=== PATIENT | male | born 1960 | race Caucasian/White ===

== ENCOUNTER 2016-07-18 14:17 | Emergency (ER) | payer BC ==
[2016-07-18 14:27] VITALS: BP 154/94
[2016-07-18] MEDS ORDERED: Metoclopramide 10 MG/2 ML SDV IVPUSH ONE (14:38)
--- NOTE | 2016-07-18 14:42 | EDM.PDOC ---
ED HPI GI/ABDOMINAL - General Chief Complaint: Abdominal Pain Stated Complaint: DEHYDRATION Time Seen by Provider: 07/18/16 14:36 Source of Information: Reports: Patient History Limitations: Reports: No limitations - History of Present Illness INITIAL COMMENTS - FREE TEXT/NARRATIVE: 56-year-old male presents the ED with acute onset of loose stools x2 days and then much worse in the last 24 hours. He is having loose watery stool almost every hour today. Patient also started vomiting today. Of note the patient has returned from the [facility] where he was on vacation for the last 7 days. Plan left at 7:00 this morning and he arrived in [facility] is than 2 hours ago. Associated diffuse abdominal cramping pain. Stools are watery without any blood. Vomited once on the airplane with home. No hematemesis. drink only bottled water while in the [facility]. His is not ill at this time no previous abdominal surgeries. Symptom Onset Date: 07/16/16 (loose stool x2 last 2 days but greater than 8 already today) Timing/Duration: Reports: Day(s):, Gradual onset Location: other (generalized abdominal cramping pain) Quality: Reports: cramping, fullness Severity: moderate Worsens with: Reports: defecating, other (drinking fluids) Context: Reports: bad/questionable food, out of country travel [facility] Denies: sick contact, recent surgery, recent trauma, lifting, activity/exercise, other Associated Symptoms: Reports: diarrhea, fever/chills (mild chills), loss of appetite, malaise, nausea/vomiting (nausea and vomited once so far today). Denies: chest pain, back pain, groin pain Treatments BOX PACKER: Reports: Other (see below) (none) - Related Data Allergies/ADRs: Allergies Allergy/AdvReac Type Severity Reaction Status Date / Time No Known Allergies Allergy Verified 07/18/16 14:27 Home Meds: Home Meds Aspirin [Ecotrin] 81 mg PO DAILY 07/18/16 [History] Ciprofloxacin HCl [Cipro] 500 mg PO BID #14 tablet 07/18/16 [Rx] Lisinopril [Zestril] 20 mg PO DAILY 07/18/16 [History] Omeprazole 20 mg PO DAILY 04/08/17 [History] Ondansetron [Zofran ODT] 4 mg PO Q6H #8 tab.dis 07/18/16 [Rx] Pravastatin [Pravachol] 20 mg PO DAILY 07/18/16 [History] Varenicline Tartrate [Chantix] 1 mg PO DAILY 07/18/16 [History] metFORMIN [Glucophage XR] 500 mg PO DAILY 07/18/16 [History] Past Medical History Cardiovascular History: Reports: High cholesterol, Hypertension Gastrointestinal History: Reports: GERD Endocrine/Metabolic History: Reports: Diabetes, type II (currently using metformin for control) Social & Family History - Tobacco Use Smoking Status *Q: Former Smoker Used Tobacco, but Quit: Yes Month Tobacco Last Used: 2 months - Caffeine Use Caffeine Use: Reports: Coffee - Recreational Drug Use Recreational Drug Use: No - Living Situation & Occupation Living situation: Reports: Occupation: employed [employer] - Review of Systems Review Of Systems: See Below Constitutional: Reports: chills (mild), malaise, weakness, fatigue, decreased appetite. Denies: fever HEENT: Reports: No symptoms Respiratory: Reports: No Symptoms Cardiovascular: Reports: No symptoms Endocrine: Reports: no symptoms GI/Abdominal: Reports: Abdominal pain (see history present illness), Diarrhea ( severe), Decreased appetite, Nausea (moderate), Vomiting (once so far today). Denies: Flatus, Hematemesis, Hematochezia, Melena, Other : Reports: no symptoms Musculoskeletal: Reports: no symptoms Skin: Reports: no symptoms Neurological: Reports: No Symptoms Psychiatric: Reports: No symptoms ED EXAM, GI/ABD - Physical Exam Exam: See Below Exam Limited By: No limitations General Appearance: alert, WD/WN, no apparent distress Eyes: bilateral: normal appearance (no jaundice) Ears: hearing loss (right ear is completely impacted with cerumen.) Throat/Mouth: Normal inspection, Normal lips, Normal teeth, Normal oropharynx Head: atraumatic, normocephalic Neck: normal inspection, supple, non-tender, full range of motion Respiratory/Chest: no respiratory distress, lungs clear, normal breath sounds, no accessory muscle use, chest non-tender Cardiovascular: normal peripheral pulses, regular rate, rhythm, no edema, no gallop, no murmur GI/Abdominal: soft, non tender, no distention, hyperactive bowel sounds, distention (moderately obese), other (small umbilical hernia which is asymptomatic. Does have diastases recti.) Back Exam: normal inspection, full range of motion Extremities: normal inspection, normal range of motion, non-tender, normal capillary refill Neurological: alert, oriented, CN II-XII intact, normal cognition Psychiatric: normal affect, normal mood Skin Exam: Warm, Dry, Intact, Normal color, No rash Course - Vital Signs Last Recorded V/S: Last Vital Signs Temp 37.3 C 07/18/16 14:20 Pulse 111 H 07/18/16 18:23 Resp 16 07/18/16 18:23 BP 154/94 H 07/18/16 14:20 Pulse Ox 96 07/18/16 18:23 Orthostatic Blood Pressure [ 128/82 Standing] Orthostatic Blood Pressure [ 136/84 Sitting] Orthostatic Blood Pressure [ 137/89 Supine] - Orders/Labs/Meds Orders: Active Orders 24 hr Category Date Time Status Ear Irrigation [RC] ASDIRECTED Care 07/18/16 14:46 Active Orthostatic Vital Signs [RC] ASDIRECTED Care 07/18/16 14:43 Active Labs: Laboratory Tests 07/18/16 07/18/16 Range/Units 14:45 14:45 WBC 18.84 H (4.23-9.07) K/mm3 RBC 5.84 (4.63-6.08) M/mm3 Hgb 17.5 (13.7-17.5) gm/L Hct 51.0 (40.1-51.0) % MCV 87.3 (79.0-92.2) fl MCH 30.0 (25.7-32.2) pg MCHC 34.3 (32.2-35.5) g/dl RDW Std Deviation 43.0 (35.1-43.9) fL Plt Count 232 (163-337) K/mm3 MPV 10.3 (9.4-12.3) fl Neutrophils % (Manual) 90 H (40-60) % Band Neutrophils % 1 (0-10) % Lymphocytes % (Manual) 6 L (20-40) % Atypical Lymphs % 0 % Monocytes % (Manual) 3 (2-10) % Eosinophils % (Manual) 0 L (0.8-7.0) % Basophils % (Manual) 0 L (0.2-1.2) Platelet Estimate Adequate RBC Morph Comment Normal Sodium 137 (136-145) mEq/L Potassium 4.6 (3.5-5.1) mEq/L Chloride 100 (98-107) mEq/L Carbon Dioxide 23 (21-32) mEq/L Anion Gap 18.6 H (5-15) BUN 25 H (7-18) mg/dL Creatinine 1.4 H (0.7-1.3) mg/dL Est Cr Clr Drug Dosing 59.62 mL/min Estimated GFR (MDRD) 53 (>60) mL/min BUN/Creatinine Ratio 17.9 (14-18) Glucose 140 H (74-106) mg/dL Calcium 9.2 (8.5-10.1) mg/dL Total Bilirubin 0.8 (0.2-1.0) mg/dL AST 21 (15-37) U/L ALT 37 (16-63) U/L Alkaline Phosphatase 78 (46-116) U/L C-Reactive Protein 3.9 H* (<1.0) mg/dL Total Protein 8.4 H (6.4-8.2) g/dl Albumin 4.3 (3.4-5.0) g/dl Globulin 4.1 gm/dL Albumin/Globulin Ratio 1.1 (1-2) Meds: Medications Discontinued Medications Generic Name Dose Route Start Last Admin Trade Name Freq PRN Reason Stop Dose Admin Dextrose/Lactated Ringer's 1,000 mls @ 999 mls/hr 07/18/16 14:45 07/18/16 15: 00 Dextrose 5%-Lactated Ringers IV 999 mls/hr ASDIRECTED UMA Administration Dextrose/Sodium Chloride 1,000 mls @ 999 mls/hr 07/18/16 15:45 07/18/16 16:32 Dextrose 5%-Normal Saline IV 999 mls/hr ASDIRECTED UMA Administration Levofloxacin/Dextrose 750 mg/ 150 mls @ 100 mls/hr 07/18/16 15:45 07/18/16 15 :50 Premix IV 07/18/16 17:14 100 mls/hr ONETIME ONE Administration Ketorolac Tromethamine 30 mg 07/18/16 14:45 07/18/16 15:07 Toradol IVPUSH 30 mg ONETIME UMA Administration Metoclopramide HCl 10 mg 07/18/16 14:38 07/18/16 15:00 Reglan IVPUSH 07/18/16 14:39 10 mg ONETIME ONE Administration - Radiology Interpretation Free Text/Narrative:: 56-year-old male presents to the ED after developing diarrhea 2 days ago and then worsening diarrhea today and vomiting. Of note he returned home from the [facility] leaving at 4:00 this morning arriving [place] 2 hours ago. He's vomited once so far today on the airplane. He said loose stool almost every hour. Associated diffuse abdominal cramping pain. Assessment is that of foodborne illness. Plan: Will try and get a stool sample for culture and sensitivity. IV will be D5 LR at open. Reglan 10 mg given IV for nausea relief.Toradol 30 mg IV for pain relief. - Re-Assessments/Exams Free Text/Narrative Re-Assessment/Exam: 07/18/16 15:46labs reveal an elevated white count at 18.84 with a left shift of 90% neutrophils and 1% band cells.hemoglobin is 17.5 with a hematocrit of 51.0 indicating a moderate degree of hemoconcentration. Platelets are normal at 232, 000. Sodium is 137 potassium is 4.6 .bicarbonate is 23.anion gap is 18.6.CRP is 3.9. Glucose 140. BUN is 25 creatinine 1.4. Therefore peers that he has picked up a significant bacterial infection involving the gut.your coronary second liter of IV fluids to improve his anion gap. This will be D5 normal saline at open. Going to start antibiotic Levaquin for 7 or 10 mg IV. He has not yet been able to produce a stool sample. Given oral Gatorade to supine in the ED which will usually produce his bowel movement.suspect and intragenic Escherichia coli as the likely culprit in terms of making him ill. 1900: the patient was not able to produce a stool while in the emergency department today. Therefore decision made to send him home with a collection chamber go home and he will return to the lab when one becomes available. Started Cipro 500 mg tonight at any rate. As prescribed 500 mg twice daily for the next 7 days to clear up however his diarrheaadvise clear fluid diet and advance as tolerated.has completed 2 L of IV fluid he feels much improved. Departure - Departure Time of Disposition: 18:45 Disposition: Home, Self-Care 01 Condition: fair Clinical Impression: Travelers' diarrhea Prescriptions: Ciprofloxacin HCl [Cipro] 500 mg PO BID #14 tablet Ondansetron [Zofran ODT] 4 mg PO Q6H #8 tab.dis Instructions: Diarrhea, Adult, [id number] Referrals: George Nielson MD [Primary Care Provider] - Forms: ED Department Discharge Additional Instructions: evaluation in the emergency room today in regards to the development of gastroenteritis or will call travelers diarrhea after vacationing in [facility]. White count was found to be markedly elevated and you were significantly dehydrated at the time of evaluation in the emergency room. Unfortunately over the last 6 hours she were not able to produce any stool so that we did have it analyzed. Try and collect a specimen at home and return to the hospital lab this evening if able. You were treated with initial dose of antibiotics intravenously and 2 L of IV fluids. Treatment at home is Zofran 4 mg under the tongue every 4-6 hours needed for nausea relief. Clear fluids such as Gatorade Powerade ideally 5-6 ounces per hour to maintain hydration. Once hungry try soda crackers if tolerated may advance to things like Jell-O, soup broth or turkey rice ,turkey noodle soup etc.should avoid all dairy products and no grape or apple juice until stools are formed back up. Antibiotic is to be Cipro 500 mg twice daily for the next 7 days to clear up infection. To take the initial Cipro tonight after picking up the prescription. - My Orders Last 24 Hours: My Active Orders 07/18/16 14:43 Orthostatic Vital Signs [RC] ASDIRECTED 07/18/16 14:46 Ear Irrigation [RC] ASDIRECTED - Assessment/Plan Last 24 Hours: My Active Orders 07/18/16 14:43 Orthostatic Vital Signs [RC] ASDIRECTED 07/18/16 14:46 Ear Irrigation [RC] ASDIRECTED
[2016-07-18] MEDS ORDERED: Ketorolac 30 MG/ML SDV IVPUSH SCH (14:45)
[2016-07-18] MEDS ORDERED: Dextrose 5%-Lactated Ringers 1,000 ML IV SCH (14:45)
[2016-07-18] MEDS ORDERED: Dextrose 5%-0.9% NaCl 1,000 ML IV SCH (15:45)
[2016-07-18] MEDS ORDERED: Levofloxacin/Dextrose 5%-Water 750 MG in Premix Bag 1 BAG IV ONE (15:45)
== END 2016-07-18 19:00 | disposition home or self-care (01) ==
LOC: JD.ED 14:17
DX: A04.8 Other specified bacterial intestinal infections (principal); I10 Essential (primary) hypertension; K21.9 Gastro-esophageal reflux disease without esophagitis; E78.00 Pure hypercholesterolemia, unspecified; E11.9 Type 2 diabetes mellitus without complications; Z79.84 Long term (current) use of oral hypoglycemic drugs; Z79.82 Long term (current) use of aspirin; Z79.899 Other long term (current) drug therapy; Z87.891 Personal history of nicotine dependence
CPT/HCPCS: 36415; 80053; 85025; 86140; 96361; 96365; 96366; 96375; 99284; J1885; J1956; J2765; J7042; 69210